=== PATIENT | male | born 2000 | race Caucasian/White ===

== ENCOUNTER 2025-04-11 16:41 | Emergency (ER) | payer OTHER ==
[~2025-04-11] VITALS: Ht 175.3 cm; Wt 74.8 kg
--- NOTE | 2025-04-11 17:02 | ERN ---
ED Note History of Present Illness Stated Complaint: STUNG BY PAT Chief Complaint: Other Problems Time Seen by MD: 16:54 Dictation: PATIENT IS A 24-YEAR-OLD MALE THAT IS HERE WITH HIS WITH COMPLAINTS OF A PUNCTURE WOUND WHILE HE WAS WALKING IN THE WATER AT [place]. HE STATES HE WAS WALKING RIGHT OFF [place] WHEN HE STEPPED ON SOMETHING AND FELT A BURNING SENSATION TO THE PLANTAR LEFT FOOT. HE THOUGHT IT WAS A STINGRAY HOWEVER HE HAS NEVER SAW ANYTHING UNDER HIS FOOT. STATES IT WAS HAD A BURNING. STATES HIS TETANUS IS UP TO DATE SINCE HE IS IN [place] TENDERNESS WITH A PUNCTURE WOUND TO THE MEDIAL ASPECT OF THE PLANTAR LEFT FOOT. MILD ERYTHEMA. Allergies: Coded Allergies: No Known Drug Allergies (Unverified Allergy, Unknown, 04/11/25) Past Medical History Past Medical History: No Pertinent History Additional Past Medical Hx: denies pmhx Surgical History: None RN Note Reviewed/Agreed w/PFSH: Yes Review of System Dictation CONSTITUTIONAL: NEGATIVE EXCEPT FOR HPI HEAD/FACE: NEGATIVE EXCEPT FOR HPI EENT: NEGATIVE EXCEPT FOR HPI RESPIRATORY: NEGATIVE EXCEPT FOR HPI GASTROINTESTINAL/ABDOMINAL: NEGATIVE EXCEPT FOR HPI GENITOURINARY: NEGATIVE EXCEPT FOR HPI MUSCULOSKELETAL: NEGATIVE EXCEPT FOR HPI INTEGUMENTARY: NEGATIVE EXCEPT FOR HPI PUNCTURE WOUND LEFT PLANTAR FOOT MEDIALLY NEUROLOGICAL/PSYCH: NEGATIVE EXCEPT FOR HPI HEMATOLOGIC/LYMPHATIC: NEGATIVE EXCEPT FOR HPI ALL SYSTEMS NEGATIVE, EXCEPT NOTED ABOVE. 13 POINT REVIEW OF SYSTEMS ASSESSED AND ALL NEGATIVE EXCEPT FOR ABOVE. Initial Vital Sign VS Vital Signs Date Time Temp Pulse Resp B/P (MAP) Pulse Ox O2 Delivery O2 Flow Rate FiO2 04/11/25 16:42 98.4 73 16 139/92 98 04/11/25 16:46 Room Air* 0 21 Physical Exam Dictation VITAL SIGNS REVIEWED GENERAL APPEARANCE: ALERT, ORIENTED X 3, MODERATE ACUTE DISTRESS, WELL DEVELOPED, NOURISHED. HEAD AND FACE: NON-TRAUMATIC. EYES: PERRL, PINK CONJUNCTIVAS, EYELID NO TRAUMA, ANTERIOR CHAMBER WITH ARCUS SENILIS. EARS: PINNAS INTACT AND NO SIGNS OF TRAUMA OR ERYTHEMA EAR CANALS CLEAR AND NO DISCHARGE TM NO ERYTHEMA NOSE: NO DISCHARGE, NO BLEEDING. OROPHARYNX: MOUTH NORMAL, TONGUE PINK, PHARYNX CLEAR,NO ERYTHEMA, TONSILS NO EXUDATES, NO ABSCESSES NOTED, MUCOUS MEMBRANE MOIST NECK: SUPPLE, NON-TENDER, NO THYROMEGALY, NO MASSES, NO JVD, NO BRUITS BREAST:DEFERRED CHEST:NO TENDERNESS, NO CREPITUS, NO PARADOXICAL MOVEMENT, NO RETRACTIONS LUNGS:CLEAR, WELL-VENTILATED, SYMMETRIC, NO RALES, NO WHEEZING, NO RHONCHI, NO STRIDOR, GOOD BREATH SOUNDS BILATERALLY HEART: REGULAR RATE, REGULAR RHYTHM, NO MURMUR, NO GALLOPS VASCULAR: NO PERIPHERAL EDEMA, ABDOMEN: SOFT, POSITIVE BOWEL SOUNDS, NONDISTENDED, NO GUARDING, NONTENDER, NO REBOUND, NO MASSES NO HEPATOMEGALY, NO SPLENOMEGALY, NO HERNDON'S SIGN, NO HERNIAS. RECTAL: DEFERRED GENITAL: DEFERRED NEUROLOGICAL: NORMAL SPEECH, MOTOR FUNCTION INTACT, SENSORY FUNCTION INTACT MUSCULOSKELETAL: NECK NONTENDER, FULL RANGE OF MOTION, BACK NONTENDER, FULL RANGE OF MOTION, EXTREMITIES: PUNCTURE WOUND TO MEDIAL PLANTAR LEFT FOOT. NO PALPABLE FOREIGN BODY. DISTAL NEUROVASCULAR CMS INTACT, MILD ERYTHEMA NOTED SKIN: COLOR PINK, DRY, LEFT FOOT PLANTAR PUNCTURE WOUND LYMPHATIC: DEFERRED Results (Laboratory/Radiology) Laboratory/Radiology 1828/LEFT FOOT X-RAY NEGATIVE FOR RADIOPAQUE FOREIGN BODY Labs Reviewed?: Yes ED Course ED Course Orders Procedure Category Date Status Time Foot Comp 3+Vws Lt RAD 04/11/25 Taken 16:58 Acetaminophen With PHA 04/11/25 In Process Codeine (Tylenol-Code 17:00 Levofloxacin 500mg PHA 04/11/25 In Process Tab (Levaquin 500mg T 18:00 Current Medications Medications (Trade) Dose Ordered Sig/Henrique Route PRN Reason Start Time Stop Time Status Last Admin Dose Admin Acetaminophen/ Codeine Phosphate (TYLenol-coDEINE TAB) 2 tab ONCE PO 04/11/25 17:00 04/11/25 21:00 04/11/25 18:12 Levofloxacin (LEvaquIN 500MG TAB) 500 mg ONCE PO 04/11/25 18:00 04/11/25 22:00 04/11/25 18:12 Vital Signs Date Time Temp Pulse Resp B/P (MAP) Pulse Ox O2 Delivery O2 Flow Rate FiO2 04/11/25 17:52 98.4 73 16 139/92 98 Room Air* 0 04/11/25 16:46 98.4 73 16 139/92 98 Room Air* 0 21 04/11/25 16:42 98.4 73 16 139/92 98 1830/PATIENT GIVEN INSTRUCTIONS ON PUNCTURE WOUND TREATMENT. LEVAQUIN AND TYLENOL CODEINE GIVEN FOR PAIN PATIENT DISCHARGED HOME WITH LEVAQUIN AND BACTROBAN IBUPROFEN TOLD TO SEE HIS PRIMARY CARE DOCTOR IN 1-2 DAYS Medical Decision Making MDM MEDICAL DECISION-MAKING BASED ON X-RAY OF LEFT FOOT TO RULE OUT RADIOPAQUE FOREIGN BODY X-RAY FOOT NEGATIVE TETANUS IS UP TO DATE, [place] GIVEN TO COVER OCEAN WATER BORNE BACTERIA WE WILL BE GIVEN LEVAQUIN, IBUPROFEN, BACTROBAN SEE HIS DOCTOR IN THE NEXT 1-2 DAYS DX & DISP Disposition: Discharge Departure Impression: Primary Impression: Puncture wound of left foot without foreign body Condition: Stable Scripts Mupirocin (Bactroban 2% Oint) 2 % Oint 1 APPL TP TID for 5 Days, #15 GM 0 Refills apply to affected area(s) Prov: MARIAH LOYOLA NP 04/11/25 Levofloxacin (Levofloxacin) 500 Mg Tablet 1 TAB PO DAILY for 10 Days, #10 TAB 0 Refills Prov: MARIAH LOYOLA NP 04/11/25 Ibuprofen (Ibuprofen 800 mg Tab) 800 Mg Tab 800 MG PO Q8H PRN for fever or pain, #30 TAB 0 Refills Prov: MARIAH LOYOLA NP 04/11/25 Additional Instructions: FOLLOW-UP WITH PRIMARY CARE PROVIDER IN 1 TO 2 DAYS. TAKE MEDICATIONS DIRECTED HERE IN THE EMERGENCY ROOM. OKAY TO CONTINUE HOME MEDICATIONS UNLESS OTHERWISE DISCUSSED DURING YOUR VISIT IN THE EMERGENCY ROOM TODAY. RETURN TO YOUR NEAREST EMERGENCY ROOM IF SYMPTOMS WORSEN OR IF THERE IS NO IMPROVEMENT. CALL 911 IF YOU NEED IMMEDIATE ASSISTANCE. TAKE TYLENOL OR MOTRIN [id number] NEEDED AND IF NO CONTRAINDICATIONS ARE PRESENT. INCREASE ORAL HYDRATION. A WOUND CULTURE OR URINE CULTURE WAS ORDERED HERE IN THE EMERGENCY ROOM DEPARTMENT PLEASE FOLLOW-UP WITH PRIMARY CARE PROVIDER AND ADVISE THEM TO GET REPEAT PORTS FROM OUR FACILITY. IF YOU HAD ANY OLEG WRAP/SPLINTS THAT WERE APPLIED HERE, PLEASE DO NOT REMOVE THEM UNTIL YOU SEE YOUR PRIMARY CARE OR SPECIALTY. TAKE ANTIBIOTICS DIRECTED UNTIL GONE. , WARM WATER SOAKS TWO TO 3 TIMES A DAY FOR THE NEXT TWO DAYS. TAKE IBUPROFEN WITH FOOD NEEDED FOR PAIN. APPLY BACTROBAN OINTMENT WITH DRESSING 3 TIMES A DAY FOR FIVE DAYS. NO WORK UNTIL CLEARED BY YOUR DOCTOR IN THE NEXT 1-2 DAYS. Referrals: SELF,REFERRAL (PCP) Time of Disposition: 18:29 I have reviewed the case, and I agree with, Diagnosis and Plan MARIAH LOYOLA NP Apr 11, 2025 17:02
[2025-04-11 17:52] VITALS: BP 139/92; PULSE 73; RESP 16; TEMP 98.4; O2SAT 98
[2025-04-11] MEDS ORDERED: MUPI22O TP (18:30)
[2025-04-11] MEDS ORDERED: IBUP-2077 PO (18:30)
[2025-04-11] MEDS ORDERED: LEVO-70 PO (18:30)
--- NOTE | 2025-04-11 19:44 | HMCIMG ---
EXAM: CR left foot, 3 View. CLINICAL HISTORY: LEFT FOOT PUNCTURE WOUND [place] RULE OUT FOREIGN BODY COMPARISON: None provided. FINDINGS: BONES: No acute fracture or aggressive appearing osseous lesion. JOINTS: The joint spaces appear within normal limits. No dislocation. SOFT TISSUES: The soft tissues are unremarkable. No radiopaque foreign body identified. IMPRESSION: No acute osseous abnormality. No radiopaque foreign body identified. /[place]
== END 2025-04-11 19:01 | disposition home or self-care (01) ==
LOC: EDH 16:41
DX: S91.331A Puncture wound without foreign body, right foot, initial encounter (principal); W22.8XXA Striking against or struck by other objects, initial encounter; Y93.89 Activity, other specified; Y92.89 Other specified places as the place of occurrence of the external cause; Y99.8 Other external cause status
CPT/HCPCS: 73630; 99283